=== PATIENT | female | born 1995 | race Caucasian/White ===

== ENCOUNTER 2018-07-13 13:48 | Emergency (ER) | payer SELFPAY ==
--- NOTE | 2018-07-13 14:06 | ER Report ---
History and Physical Time Seen By MD: 14:03 Hx. of Stated Complaint: RUQ pain, onset yesterday. Denies N/V/D or urinary symptoms. HPI/ROS CHIEF COMPLAINT: Right upper quadrant pain HISTORY OF PRESENT ILLNESS: This is a 22-year-old female presents to the emergency department for right upper quadrant pain. Patient states that she began to have some discomfort in the right upper quadrant last night, progressively getting worse through the course of the evening and today segmentally worse, pain 6 out of 10. Denies nausea, vomiting, diarrhea or dysuria. Has had a cough for approximately one month, patient has recently moved to [place] from [place]. Denies chest pain or shortness of breath. Denies fevers or chills. REVIEW OF SYSTEMS: Constitutional: No fever, no chills. Eyes: No discharge. ENT: No sore throat. Cardiovascular: No chest pain, no palpitations. Respiratory: No cough, no shortness of breath. Gastrointestinal: As above. Genitourinary: No hematuria. Musculoskeletal: No back pain. Skin: No rashes. Neurological: No headache. Allergies: Coded Allergies: amoxicillin (Verified Allergy, Unknown, 07/13/18) Home Meds No Active Prescriptions or Reported Meds Past Medical/Surgical History The patient has a past medical and surgical history of meth use. Reviewed Nurses Notes: Yes Hx Substance Use Disorder: Yes (meth, last night) Hx Alcohol Use: Yes (last night) Constitutional Vital Sign - Last 24 Hours 07/13/18 07/13/18 07/13/18 07/13/18 13:51 13:53 13:53 13:58 Temp 97.7 Pulse ??? 104 105 Resp 18 B/P (MAP) 143/95 (111) 143/95 Pulse Ox 96 99 97 O2 Delivery Room Air 07/13/18 07/13/18 07/13/18 07/13/18 14:00 14:03 14:08 14:13 Pulse 109 103 102 Resp 25 24 19 B/P (MAP) 134/88 (103) Pulse Ox 97 97 97 07/13/18 07/13/18 07/13/18 07/13/18 14:18 14:23 14:28 14:30 Pulse 104 101 99 Resp 20 23 24 B/P (MAP) 119/91 (100) Pulse Ox 97 96 100 07/13/18 07/13/18 07/13/18 07/13/18 14:33 14:38 14:43 14:48 Pulse 99 99 98 105 Resp 23 15 20 20 Pulse Ox 94 95 95 95 07/13/18 07/13/18 07/13/18 07/13/18 15:00 15:03 15:08 15:13 Pulse 90 88 89 Resp 25 8 29 B/P (MAP) 118/82 (94) Pulse Ox 96 96 07/13/18 07/13/18 07/13/18 07/13/18 15:18 15:23 15:28 15:30 Pulse 86 89 97 Resp 16 21 10 B/P (MAP) 122/90 (101) Pulse Ox 96 96 96 07/13/18 07/13/18 07/13/18 07/13/18 15:33 15:38 15:43 15:48 Pulse 96 88 92 99 Resp 11 11 20 12 Pulse Ox 98 95 95 95 07/13/18 07/13/18 07/13/18 07/13/18 15:53 15:58 16:00 16:03 Pulse 91 91 94 Resp 19 15 28 B/P (MAP) 115/83 (94) Pulse Ox 94 94 93 07/13/18 07/13/18 07/13/18 07/13/18 16:08 16:13 16:18 16:23 Pulse ? 97 Resp 13 Pulse Ox 93 07/13/18 07/13/18 07/13/18 07/13/18 16:28 16:30 16:33 16:38 Pulse 97 106 93 Resp 12 24 14 B/P (MAP) 121/80 (94) Pulse Ox 95 94 96 07/13/18 07/13/18 07/13/18 16:43 16:48 16:53 Pulse 89 98 Resp 9 15 21 B/P (MAP) 119/83 (95) Pulse Ox 94 95 93 Physical Exam General Appearance: The patient is alert, has no immediate need for airway protection and no signs of toxicity. Eyes: Pupils equal and round no pallor or injection. ENT, Mouth: Mucous membranes are moist. Respiratory: There are no retractions, slightly diminished and coarse in the right lower lobe, otherwise clear throughout. Cardiovascular: Regular rate and rhythm. Gastrointestinal: Abdomen is soft, positive Soares sign, no masses, bowel sounds normal. Neurological: Alert and oriented 4. Moving all extremities. Following all commands. No focal neuro deficits. Skin: Warm and dry, no rashes. Musculoskeletal: Neck is supple non tender. Extremities are nontender, nonswollen and have full range of motion. DIFFERENTIAL DIAGNOSIS: After history and physical exam differential diagnosis was considered for abdominal pain in a female including but not limited to ovarian cyst, pelvic inflammatory disease, cholecystitis, pneumonia, ovarian torsion, urinary tract infection, and appendicitis. Medical Decision Making Data Points Result Diagram: 07/13/18 1404 07/13/18 1404 Laboratory Hematology Test 07/13/18 13:57 07/13/18 14:04 Urine Color Yellow Urine Clarity Clear Urine pH 7.0 pH (4.8-9.5) Urine Specific [place] 1.008 Urine Protein Negative mg/dL (NEGATIVE) Urine Glucose (UA) Negative mg/dL (NEGATIVE) Urine Ketones Negative mg/dL (NEGATIVE) Urine Blood Negative (NEGATIVE) Urine Nitrite Negative (NEGATIVE) Urine Bilirubin Negative (NEGATIVE) Urine Urobilinogen Negative mg/dL (0.2-1.9) Urine Leukocyte Esterase Negative (NEGATIVE) Urine RBC None /HPF (0-2/HPF) Urine WBC 1 /HPF (0-5/HPF) Urine Squamous Epithelial Cells Many /LPF (</=FEW) Urine Renal Epithelial Cells Few /LPF (NONE-FEW) Urine Bacteria Negative /HPF (NONE-FEW) Urine Mucus Few /HPF (NONE-FEW) Red Blood Count 5.37 M/uL (4.17-5.56) Mean Corpuscular Volume 86.9 fL (80.0-96.0) Mean Corpuscular Hemoglobin 30.1 pg (26.0-33.0) Mean Corpuscular Hemoglobin Concent 34.6 g/dL (32.0-36.0) Red Cell Distribution Width 14.0 % (11.5-14.5) Mean Platelet Volume 9.3 fL (7.2-11.1) Neutrophils (%) (Auto) 68.0 % (39.4-72.5) Lymphocytes (%) (Auto) 24.0 % (17.6-49.6) Monocytes (%) (Auto) 6.6 % (4.1-12.4) Eosinophils (%) (Auto) 1.1 % (0.4-6.7) Basophils (%) (Auto) 0.3 % (0.3-1.4) Nucleated RBC Relative Count (auto) 0.1 /100WBC Neutrophils # (Auto) 5.6 K/uL (2.0-7.4) Lymphocytes # (Auto) 2.0 K/uL (1.3-3.6) Monocytes # (Auto) 0.5 K/uL (0.3-1.0) Eosinophils # (Auto) 0.1 K/uL (0.0-0.5) Basophils # (Auto) 0.0 K/uL (0.0-0.1) Nucleated RBC Absolute Count (auto) 0.01 K/uL Sodium Level 140 mmol/L (137-145) Potassium Level 3.3 mmol/L (3.5-5.0) Chloride Level 100 mmol/L (98-107) Carbon Dioxide Level 28 mmol/L (22-31) Blood Urea Nitrogen 5 mg/dl (7-18) Creatinine 0.60 mg/dl (0.52-1.04) Glomerular Filtration Rate Calc > 60.0 Random Glucose 94 mg/dl (75-110) Calcium Level 9.8 mg/dl (8.4-10.2) Total Bilirubin 0.4 mg/dl (0.2-1.3) Aspartate Amino Transf (AST/SGOT) 24 U/L (0-35) Alanine Aminotransferase (ALT/SGPT) 22 U/L (0-56) Alkaline Phosphatase 98 U/L (0-126) Total Protein 8.8 g/dl (6.3-8.2) Albumin 4.7 g/dl (3.5-5.0) Lipase 57 U/L (23-300) Human Chorionic Gonadotropin, Qual Negative (NEGATIVE) Chemistry Test 07/13/18 13:57 07/13/18 14:04 Urine Color Yellow Urine Clarity Clear Urine pH 7.0 pH (4.8-9.5) Urine Specific [place] 1.008 Urine Protein Negative mg/dL (NEGATIVE) Urine Glucose (UA) Negative mg/dL (NEGATIVE) Urine Ketones Negative mg/dL (NEGATIVE) Urine Blood Negative (NEGATIVE) Urine Nitrite Negative (NEGATIVE) Urine Bilirubin Negative (NEGATIVE) Urine Urobilinogen Negative mg/dL (0.2-1.9) Urine Leukocyte Esterase Negative (NEGATIVE) Urine RBC None /HPF (0-2/HPF) Urine WBC 1 /HPF (0-5/HPF) Urine Squamous Epithelial Cells Many /LPF (</=FEW) Urine Renal Epithelial Cells Few /LPF (NONE-FEW) Urine Bacteria Negative /HPF (NONE-FEW) Urine Mucus Few /HPF (NONE-FEW) White Blood Count 8.3 k/uL (4.5-11.0) Red Blood Count 5.37 M/uL (4.17-5.56) Hemoglobin 16.2 g/dL (12.0-16.0) Hematocrit 46.7 % (34.0-47.0) Mean Corpuscular Volume 86.9 fL (80.0-96.0) Mean Corpuscular Hemoglobin 30.1 pg (26.0-33.0) Mean Corpuscular Hemoglobin Concent 34.6 g/dL (32.0-36.0) Red Cell Distribution Width 14.0 % (11.5-14.5) Platelet Count 300 K/uL (150-450) Mean Platelet Volume 9.3 fL (7.2-11.1) Neutrophils (%) (Auto) 68.0 % (39.4-72.5) Lymphocytes (%) (Auto) 24.0 % (17.6-49.6) Monocytes (%) (Auto) 6.6 % (4.1-12.4) Eosinophils (%) (Auto) 1.1 % (0.4-6.7) Basophils (%) (Auto) 0.3 % (0.3-1.4) Nucleated RBC Relative Count (auto) 0.1 /100WBC Neutrophils # (Auto) 5.6 K/uL (2.0-7.4) Lymphocytes # (Auto) 2.0 K/uL (1.3-3.6) Monocytes # (Auto) 0.5 K/uL (0.3-1.0) Eosinophils # (Auto) 0.1 K/uL (0.0-0.5) Basophils # (Auto) 0.0 K/uL (0.0-0.1) Nucleated RBC Absolute Count (auto) 0.01 K/uL Glomerular Filtration Rate Calc > 60.0 Calcium Level 9.8 mg/dl (8.4-10.2) Total Bilirubin 0.4 mg/dl (0.2-1.3) Aspartate Amino Transf (AST/SGOT) 24 U/L (0-35) Alanine Aminotransferase (ALT/SGPT) 22 U/L (0-56) Alkaline Phosphatase 98 U/L (0-126) Total Protein 8.8 g/dl (6.3-8.2) Albumin 4.7 g/dl (3.5-5.0) Lipase 57 U/L (23-300) Human Chorionic Gonadotropin, Qual Negative (NEGATIVE) Urinalysis Test 07/13/18 13:57 Urine Color Yellow Urine Clarity Clear Urine pH 7.0 pH (4.8-9.5) Urine Specific [place] 1.008 Urine Protein Negative mg/dL (NEGATIVE) Urine Glucose (UA) Negative mg/dL (NEGATIVE) Urine Ketones Negative mg/dL (NEGATIVE) Urine Blood Negative (NEGATIVE) Urine Nitrite Negative (NEGATIVE) Urine Bilirubin Negative (NEGATIVE) Urine Urobilinogen Negative mg/dL (0.2-1.9) Urine Leukocyte Esterase Negative (NEGATIVE) Urine RBC None /HPF (0-2/HPF) Urine WBC 1 /HPF (0-5/HPF) Urine Squamous Epithelial Cells Many /LPF (</=FEW) Urine Renal Epithelial Cells Few /LPF (NONE-FEW) Urine Bacteria Negative /HPF (NONE-FEW) Urine Mucus Few /HPF (NONE-FEW) EKG/Imaging Imaging Location: [facility] Patient: Mya Vidal : 1995 Visit/Account:[id number] Date of Sevice: 07/13/2018 ABDOMEN/PELVIS WITH CONTRAST HISTORY: Right-sided abdominal pain TECHNIQUE: Axial images were obtained through the abdomen and pelvis with intravenous contrast . One of the following dose optimization techniques was utilized in the performance of this exam: automated exposure control; adjustment of the mA and/or kv according to patient size; or use of iterative reconstruction technique. Specific details can be referenced in the facility's radiology CT exam operational policy. CONTRAST: 75 cc of Isovue-370 COMPARISON: Ultrasound earlier the same day FINDINGS: Visualized lung bases: Platelike atelectasis. Hepatobiliary: Negative. Spleen: Negative. Adrenals: Negative. Pancreas: Negative. Kidneys/ureters/bladder: Negative. Bowel/peritoneum/mesentery: Normal retrocecal appendix. No bowel obstruction or free air. No inflammatory change surrounding the colon.. Vessels: Negative. Lymph nodes: Negative. Pelvic genitourinary: Probable 1.9 x 1.3 cm functional cyst within the right ovary with trace amount of pelvic free fluid. Bones/body wall: Negative. Other findings: None significant IMPRESSION: 1. Probable 1.9 x 1.3 cm functional cyst within the right ovary with trace amount of pelvic free fluid. 2. Normal appendix. No other acute inflammatory process identified. Report Dictated By: Kobe Gonzales MD at 07/13/2018 4:26 PM Report E-Signed By: Kobe Gonzales MD at 07/13/2018 4:31 PM WSN:[id number] CHEST PA AND LAT HISTORY: Right upper quadrant pain. Cough. COMPARISON: None FINDINGS: Cardiomediastinal contours: Normal Lungs and pleura: Normal Bones/soft tissues: Normal Other findings: None significant IMPRESSION: 1. Normal chest Report Dictated By: Kobe Gonzales MD at 07/13/2018 3:01 PM Report E-Signed By: Kobe Gonzales MD at 07/13/2018 3:04 PM WSN:[id number] CCESSION #: [id number] GALLBLADDER HISTORY: RUQ pain COMPARISON: None. FINDINGS: Gallbladder: Negative.. Bile ducts: There is no biliary ductal dilation with the CBD measuring 3 mm. Liver: Negative. Pancreas: Negative. Right kidney: Negative. Upper abdominal aorta and IVC: Patent. Ascites: None visualized. Other findings: None significant IMPRESSION: 1. Normal Report Dictated By: Kobe Gonzales MD at 07/13/2018 3:43 PM Report E-Signed By: Kobe Gonzales MD at 07/13/2018 3:46 PM WSN:[id number] ED Course/Re-evaluation Clinical Indication for ER IV: Hydration, IV Access ED Course The patient was fitted to a room. A history and physical obtained. Differential diagnoses were considered. An IV was started. A CBC, CMP were pain. Lab studies unremarkable. UA unremarkable. Patient was given a 1 L normal saline bolus. Ultrasound of the right upper quadrant was negative for cholecystitis. Negative two-view chest x-ray. CT of the abdomen and pelvis was negative for any acute findings other than a right-sided ovarian cyst. I reviewed all the laboratory studies and the imaging results with the patient. Patient declined pain medication in the emergency department. The patient at this is likely the cause of her discomfort on the right side. Patient was instructed to follow-up with an [facility] CLERK in the [facility] with primary care provider here in [facility]. Patient had no other questions or concerns at this time and discharged home. Decision to Disposition Date: Jul 13, 2018 Decision to Disposition Time: 16:47 Depart Departure Latest Vital Signs Vital Signs Date Time Temp Pulse Resp B/P (MAP) Pulse Ox O2 Delivery O2 Flow Rate FiO2 07/13/18 16:53 21 119/83 (95) 93 07/13/18 16:48 98 07/13/18 13:53 97.7 Room Air Impression: Primary Impression: Ovarian cyst Condition: Improved Disposition: HOME OR SELF-CARE New Scripts No Active Prescriptions or Reported Meds Patient Instructions: Ovarian Cyst (ED) Additional Instructions: You have a an ovarian cyst on the right that his likely causing your discomfort. Drink plenty of fluids. Get plenty of rest. Take Ibuprofen or Tylenol as needed for pain. Return to the ED for any other concerns or worsening symptoms. Problem Qualifiers Primary Impression: Ovarian cyst Laterality: right Qualified Codes: N83.201 - Unspecified ovarian cyst, right side ENRICO BETANCOURT BRASS SORTER-BC Jul 13, 2018 14:06
[2018-07-13] MEDS ORDERED: NS(*) 0.9% 1000 ML BAG 1,000 ML IV ONE (14:32)
[2018-07-13 14:57] LABS: PLATELET COUNT, AUTOMATED 300 K/uL (150-450)
--- NOTE | 2018-07-13 15:08 | RADIOLOGY IMAGING REPORT ---
FACILITY: [facility] PATIENT NAME: Mya Vidal : 1995 MR: [id number] V: [id number] EXAM DATE: ORDERING PHYSICIAN: ENRICO BETANCOURT TECHNOLOGIST: Location: [facility] Patient: Mya Vidal : 1995 Visit/Account:[id number] Date of Sevice: 07/13/2018 CHEST PA AND LAT HISTORY: Right upper quadrant pain. Cough. COMPARISON: None FINDINGS: Cardiomediastinal contours: Normal Lungs and pleura: Normal Bones/soft tissues: Normal Other findings: None significant IMPRESSION: 1. Normal chest Report Dictated By: Kobe Gonzales MD at 07/13/2018 3:01 PM Report E-Signed By: Kobe Gonzales MD at 07/13/2018 3:04 PM WSN:[id number]
--- NOTE | 2018-07-13 15:50 | RADIOLOGY IMAGING REPORT ---
FACILITY: [facility] PATIENT NAME: Mya Vidal : 1995 MR: [id number] V: [id number] EXAM DATE: ORDERING PHYSICIAN: ENRICO BETANCOURT TECHNOLOGIST: Location: [facility] Patient: Mya Vidal : 1995 Visit/Account:[id number] Date of Sevice: 07/13/2018 GALLBLADDER HISTORY: RUQ pain COMPARISON: None. FINDINGS: Gallbladder: Negative.. Bile ducts: There is no biliary ductal dilation with the CBD measuring 3 mm. Liver: Negative. Pancreas: Negative. Right kidney: Negative. Upper abdominal aorta and IVC: Patent. Ascites: None visualized. Other findings: None significant IMPRESSION: 1. Normal Report Dictated By: Kobe Gonzales MD at 07/13/2018 3:43 PM Report E-Signed By: Kobe Gonzales MD at 07/13/2018 3:46 PM WSN:[id number]
[2018-07-13] MEDS ORDERED: IOPAMIDOL 76% 75 ML INFUS BTL 75 ML ONE (16:10)
--- NOTE | 2018-07-13 16:35 | RADIOLOGY IMAGING REPORT ---
FACILITY: PATIENT NAME: Mya Vidal : 1995 MR: [id number] V: [id number] EXAM DATE: ORDERING PHYSICIAN: ENRICO BETANCOURT TECHNOLOGIST: Location: [facility] Patient: Mya Vidal : 1995 Visit/Account:[id number] Date of Sevice: 07/13/2018 ABDOMEN/PELVIS WITH CONTRAST HISTORY: Right-sided abdominal pain TECHNIQUE: Axial images were obtained through the abdomen and pelvis with intravenous contrast . One of the following dose optimization techniques was utilized in the performance of this exam: automate d exposure control; adjustment of the mA and/or kv according to patient size; or use of iterative rec onstruction technique. Specific details can be referenced in the facility's radiology CT exam operati onal policy. CONTRAST: 75 cc of Isovue-370 COMPARISON: Ultrasound earlier the same day FINDINGS: Visualized lung bases: Platelike atelectasis. Hepatobiliary: Negative. Spleen: Negative. Adrenals: Negative. Pancreas: Negative. Kidneys/ureters/bladder: Negative. Bowel/peritoneum/mesentery: Normal retrocecal appendix. No bowel obstruction or free air. No inflamm atory change surrounding the colon.. Vessels: Negative. Lymph nodes: Negative. Pelvic genitourinary: Probable 1.9 x 1.3 cm functional cyst within the right ovary with trace amount of pelvic free fluid. Bones/body wall: Negative. Other findings: None significant IMPRESSION: 1. Probable 1.9 x 1.3 cm functional cyst within the right ovary with trace amount of pelvic free flui d. 2. Normal appendix. No other acute inflammatory process identified. Report Dictated By: Kobe Gonzales MD at 07/13/2018 4:26 PM Report E-Signed By: Kobe Gonzales MD at 07/13/2018 4:31 PM WSN:[id number]
[2018-07-13 16:53] VITALS: BP 119/83
== END 2018-07-13 17:02 | disposition home or self-care (01) ==
LOC: ER 13:53
DX: N83.201 Unspecified ovarian cyst, right side (principal)
CPT/HCPCS: 71046; 74177; 76705; 81001; 83690; 84703; 85025; 96360; 99284; J7030; Q9967; 82040; 82247; 82310; 82374; 82435; 82565; 82947; 84075; 84132; 84155; 84295; 84450; 84460; 84520

== ENCOUNTER 2018-12-20 09:48 | Observation (INO) | payer SELFPAY ==
[2018-12-20] VITALS (12 sets, daily range): BP systolic 77–104; BP diastolic 49–69
[~2018-12-20] VITALS: Ht 172.7 cm; Wt 59.0 kg
--- NOTE | 2018-12-20 10:29 | ER Report ---
History and Physical Time Seen By MD: 10:29 Hx. of Stated Complaint: DOG BITE HPI/ROS CHIEF COMPLAINT: Dog bite HISTORY OF PRESENT ILLNESS: 23-year-old female patient presents to emergency room with complaint of a dog bite. Patient states that she was walking at 8:00 this morning with a friend. She states that a dog came up and attacked her. Patient states she was bit initially on the right forearm, in the right ankle and the left lower leg. Patient states she did not know the dog. She states that it was a stray and seemingly attacked her for no reason. She states that since then she tried to take a bath, clean everything off and get the bleeding stopped. She denies having any numbness or tingling. She has not taken any medication for this. Patient states that she has no nausea, vomiting. Patient does have pain but states that she can't really feel the wounds. REVIEW OF SYSTEMS: Respiratory: No cough, no dyspnea. Cardiovascular: No chest pain, no palpitations. Gastrointestinal: No vomiting, no abdominal pain. Musculoskeletal: No back pain. Allergies: Coded Allergies: promethazine (Verified Allergy, Intermediate, 12/20/18) amoxicillin (Verified Allergy, Unknown, 07/13/18) Home Meds No Active Prescriptions or Reported Meds Past Medical/Surgical History Patient has a past medical history of marijuana use, alcohol use. Patient has a surgical history of a cyst removed from her back. Reviewed Nurses Notes: Yes Hx Substance Use Disorder: Yes (WEED) Hx Alcohol Use: Yes (last night) Constitutional Vital Sign - Last 24 Hours 12/20/18 12/20/18 09:58 10:45 Temp 98.7 Pulse 102 126 Resp 22 B/P (MAP) 96/61 Pulse Ox 95 Physical Exam General Appearance: The patient is alert, has no immediate need for airway protection and no current signs of toxicity. Respiratory: Chest is non tender, lungs are clear to auscultation. Cardiac: regular rate and rhythm Gastrointestinal: Abdomen is soft and non tender, no masses, bowel sounds normal. Musculoskeletal: Neck: Neck is supple and non tender. Extremities have full range of motion and are non tender. Skin: No rashes or lesions. Patient has puncture wound to right forearm, puncture wounds to right ankle, the left forearm has stellate laceration secondary to dogbite the goes down to the muscle, it measures approximately 7 cm x 7 cm. DIFFERENTIAL DIAGNOSIS: After history and physical exam differential diagnosis was considered for dogbite, infection. Medical Decision Making Data Points Laboratory Hematology Test 12/20/18 11:00 Human Chorionic Gonadotropin, Qual Negative (NEGATIVE) Chemistry Test 12/20/18 11:00 Human Chorionic Gonadotropin, Qual Negative (NEGATIVE) EKG/Imaging Imaging TIBIA FIBULA LEFT, ANKLE 3 VIEW MIN RIGHT Indication: dog bite Comparison: None. Findings: Left tibia/fibular radiograph: The tibia and fibula are intact. Soft tissues demonstrate simultaneous gas along the calf area, consistent with dogbite. There is no radiopaque foreign body. Right ankle: The distal tibia, distal fibula, and the talus are intact. Mortise is preserved. Soft tissues are normal. IMPRESSION: 1. No evidence of fracture left tibia/fibula. 2. Subcutaneous gas and swelling in the left calf, consistent with dogbite. No evidence of radiopaque foreign body. 2. Normal right ankle radiograph. Report Dictated By: Florian Jameson at 12/20/2018 11:48 AM Report E-Signed By: Florian Jameson at 12/20/2018 11:49 AM FOREARM RIGHT Indication: dog bite Comparison: None. Findings: The right radius and ulna are intact. There is a soft tissue defect in the mid forearm, consistent with dog bite. There is no radiopaque foreign body. IMPRESSION: 1. Soft tissue changes consistent with dog bite. 2. No evidence of fracture or foreign body. Report Dictated By: Florian Jameson at 12/20/2018 11:49 AM Report E-Signed By: Florian Jameson at 12/20/2018 11:50 AM ED Course/Re-evaluation ED Course Patient was admitted to an exam room, history and physical were obtained. Differential diagnoses were considered. On examination patient does have bites to the right forearm, the right ankle as well as large bite to the left lower leg. The wound the left lower leg does look to be a significant depth as well as fairly large. An IV was started, patient was given a dose of Rocephin (2 g) as well as a dose of Flagyl (500mg). Patient was given a shot of the rabies vaccine. She is also given a tetanus. I discussed the case with Dr. Rodas, general surgeon. I asked him to come take a look at this as he was in house. He did come down he did see that the wound especially to the left lower leg was of significant depth. He opted to go ahead and take her to surgery to clean that out. We discussed this with the patient who verbalized understanding and agreement. I did discuss with Dr. Rodas about giving her the IgG for rabies while she was under anesthesia as I can be quite painful. He verbalized agreement with that I was willing to do that. I also discussed with patient that she will need to follow-up in special procedures, [facility], on Saturday and then again next Saturday and the Saturday after that to receive additional doses of the rabies vaccine. Patient was taken to the operating room with plan to monitor her overnight with IV antibiotics. Decision to Disposition Date: Dec 20, 2018 Decision to Disposition Time: 11:13 Depart Departure Latest Vital Signs Vital Signs Date Time Temp Pulse Resp B/P (MAP) Pulse Ox O2 Delivery O2 Flow Rate FiO2 12/20/18 10:45 126 12/20/18 09:58 98.7 22 96/61 95 Impression: Primary Impression: Dog bite of left calf Additional Impressions: Dog bite of arm Dog bite of ankle Condition: Condition Unchanged Disposition: ADMIT FROM ER TO OR New Scripts No Active Prescriptions or Reported Meds Problem Qualifiers Primary Impression: Dog bite of left calf Encounter type: initial encounter Qualified Codes: S81.852A - Open bite, left lower leg, initial encounter; W54.0XXA - Bitten by dog, initial encounter Additional Impressions: Dog bite of arm Encounter type: initial encounter Laterality: right Qualified Codes: S41.151A - Open bite of right upper arm, initial encounter; W54.0XXA - Bitten by dog, initial encounter Dog bite of ankle Encounter type: initial encounter Laterality: right Qualified Codes: S91.051A - Open bite, right ankle, initial encounter; W54.0XXA - Bitten by dog, initial encounter MAR GARCIA Dec 20, 2018 10:29
[2018-12-20] MEDS ORDERED: LORazepam 2 MG/ML VIAL IVP ONE (10:40)
[2018-12-20] MEDS ORDERED: RABIES IMMUNE GLOB/PF 300 U/ML VIAL IM ONE ×2 (10:40→11:00)
[2018-12-20] MEDS ORDERED: metroNIDAZOLE* 500MG/100ML BAG 100 ML IVPB ONE (10:40)
[2018-12-20] MEDS ORDERED: cefTRIAXone(*) 2 GM VIAL 2 GM in NS(*) 0.9% 100 ML ADDVANT BAG 100 ML IVPB ONE (10:40)
[2018-12-20] MEDS ORDERED: RABIES VAC(HUMAN) DIPL 2.5/KIT IM ONLY ONE (10:40)
[2018-12-20] MEDS ORDERED: DIPHTH/TETANUS/ACEL. PERTUSSIS IM ONLY ONE (11:10)
[2018-12-20] MEDS ORDERED: LIDOCAINE MPF 1% 5 ML VIAL ONE (11:14)
[2018-12-20] MEDS ORDERED: PROPOFOL EMUL(*) 10MG/ML 20 ML 20 ML ONE (11:14)
[2018-12-20] MEDS ORDERED: DEXAMETHASONE SOD PHOS 10MG/ML ONE (11:14)
[2018-12-20] MEDS ORDERED: ONDANSETRON 4 MG/2 ML VIAL ONE (11:14)
[2018-12-20] MEDS ORDERED: fentaNYL CITR 100 MCG/2 ML AMP ONE ×2 (11:19→12:50)
[2018-12-20] MEDS ORDERED: NORMOSOL R SOLN(*) 1000 ML BAG 1,000 ML IV ONE (11:20)
--- NOTE | 2018-12-20 11:21 | General Surgery Consultation ---
History of Present Illness Reason for Consult dog bite Chief Complaint dog bite History of Present Illness 23 yo f attacked by stray dog at 0800 this morning. she thinks the dog was a pitbull. she was bitten on right forearm, bilat lower leg. these wounds are painful. she cleaned the wounds at home then came to er. she unsure of last tetanus shot. pmh/psh: cyst removed from back as a child social hx: occasional etoh, mj History Home Meds No Active Prescriptions or Reported Meds Allergies: Coded Allergies: promethazine (Verified Allergy, Intermediate, 12/20/18) amoxicillin (Verified Allergy, Unknown, 07/13/18) Review of Systems Constitutional: Other (10 pt ros neg except per hpi) Exam Vital Signs Vital Signs Date Time Temp Pulse Resp B/P (MAP) Pulse Ox O2 Delivery O2 Flow Rate FiO2 12/20/18 10:45 126 12/20/18 09:58 98.7 22 96/61 95 General Appearance: Alert, Awake, Other (anxious but appropriate) Neuro: No Gross deficits, Other (sensation and motor intact left lower ext) Eyes: Other (per, eomi) Cardiovascular: Other (slightly tachycardic) Respiratory: No Respiratory Distress GI: Other (abd soft) Extremities: Other (1 inch open wound right forearm. < 1 cm wound right lower leg. large deep wound left lower leg over richards. did not fully eval due to pain and anxiety. all wounds hemostatic. ) Psych: Alert & Oriented X3, Appropriate Mood & Affect Assessment and Plan Problems: (1) Dog bite of arm Status: Acute Assessment & Plan: npo, iv abx, tetanus, rabies vaccine, will explore and washout wounds in OR. (2) Dog bite of ankle Status: Acute (3) Dog bite of left calf Status: Acute Venous Thromboembolism Antithrombotics Is Pt On Any Antithrombotics?: No Problem Qualifiers (1) Dog bite of arm: Encounter type: initial encounter Laterality: right Qualified Codes: S41.151A - Open bite of right upper arm, initial encounter; W54.0XXA - Bitten by dog, initial encounter (2) Dog bite of ankle: Encounter type: initial encounter Laterality: right Qualified Codes: S91.051A - Open bite, right ankle, initial encounter; W54.0XXA - Bitten by dog, initial encounter (3) Dog bite of left calf: Encounter type: initial encounter Qualified Codes: S81.852A - Open bite, left lower leg, initial encounter; W54.0XXA - Bitten by dog, initial encounter KRUPA JOSEPH Dec 20, 2018 11:21
[2018-12-20] MEDS ORDERED: MORPHINE 4 MG/ML SDV IVP ONE (11:50)
--- NOTE | 2018-12-20 11:54 | RADIOLOGY IMAGING REPORT ---
[place] [facility] [place] NAME: Mya Vidal : 1995 MR: [id number] V: [id number] EXAM DATE: ORDERING PHYSICIAN: MAR GARCIA TECHNOLOGIST: Location: [facility] Patient: Mya Vidal : 1995 Visit/Account:[id number] Date of Sevice: 12/20/2018 TIBIA FIBULA LEFT, ANKLE 3 VIEW MIN RIGHT Indication: dog bite Comparison: None. Findings: Left tibia/fibular radiograph: The tibia and fibula are intact. Soft tissues demonstrate simultaneous gas along the calf area, consistent with dogbite. There is no radiopaque foreign body. Right ankle: The distal tibia, distal fibula, and the talus are intact. Mortise is preserved. Soft ti ssues are normal. IMPRESSION: 1. No evidence of fracture left tibia/fibula. 2. Subcutaneous gas and swelling in the left calf, consistent with dogbite. No evidence of radiopaque foreign body. 2. Normal right ankle radiograph. Report Dictated By: Florian Jameson at 12/20/2018 11:48 AM Report E-Signed By: Florian Jameson at 12/20/2018 11:49 AM WSN:[id number]
--- NOTE | 2018-12-20 11:54 | RADIOLOGY IMAGING REPORT ---
FACILITY: [facility] PATIENT NAME: Mya Vidal : 1995 MR: [id number] V: [id number] EXAM DATE: ORDERING PHYSICIAN: MAR GARCIA TECHNOLOGIST: Location: [facility] Patient: Mya Vidal : 1995 Visit/Account:[id number] Date of Sevice: 12/20/2018 FOREARM RIGHT Indication: dog bite Comparison: None. Findings: The right radius and ulna are intact. There is a soft tissue defect in the mid forearm, con sistent with dog bite. There is no radiopaque foreign body. IMPRESSION: 1. Soft tissue changes consistent with dog bite. 2. No evidence of fracture or foreign body. Report Dictated By: Florian Jameson at 12/20/2018 11:49 AM Report E-Signed By: Florian Jameson at 12/20/2018 11:50 AM WSN:[id number]
--- NOTE | 2018-12-20 11:55 | RADIOLOGY IMAGING REPORT ---
FACILITY: [facility] - [place] PATIENT NAME: Mya Vidal : 1995 MR: [id number] V: [id number] EXAM DATE: ORDERING PHYSICIAN: MAR GARCIA TECHNOLOGIST: [place] [facility] [place] Patient: Mya Vidal : 1995 Visit/Account:[id number] Date of Sevice: 12/20/2018 TIBIA FIBULA LEFT, ANKLE 3 VIEW MIN RIGHT Indication: dog bite Comparison: None. Findings: Left tibia/fibular radiograph: The tibia and fibula are intact. Soft tissues demonstrate simultaneous gas along the calf area, consistent with dogbite. There is no radiopaque foreign body. Right ankle: The distal tibia, distal fibula, and the talus are intact. Mortise is preserved. Soft ti ssues are normal. IMPRESSION: 1. No evidence of fracture left tibia/fibula. 2. Subcutaneous gas and swelling in the left calf, consistent with dogbite. No evidence of radiopaque foreign body. 2. Normal right ankle radiograph. Report Dictated By: Florian Jameson at 12/20/2018 11:48 AM Report E-Signed By: Florian Jameson at 12/20/2018 11:49 AM WSN:[id number]
[2018-12-20] MEDS ORDERED: NEOMYCIN/POLYMYX/BACITR 30 GM TP ONE (12:06)
[2018-12-20] MEDS ORDERED: BUPIVACAINE/EPI 0.5% 50ML VIAL INFIL ONE (12:07)
[2018-12-20] MEDS ORDERED: FAMOTIDINE 20 MG TAB PO ONE (12:10)
[2018-12-20] MEDS ORDERED: FAMOTIDINE(*) 20MG/50ML PREMIX 50 ML IVPB ONE (12:11)
[2018-12-20] MEDS ORDERED: PROPOFOL EMUL(*) 10MG/ML 20 ML 60 ML ONE (12:22)
[2018-12-20] MEDS ORDERED: MIDAZOLAM 2 MG/2 ML VIAL ONE (12:27)
[2018-12-20] MEDS ORDERED: REMIFENTANIL HCL 1 MG VIAL ONE (12:59)
[2018-12-20] MEDS ORDERED: ONDANSETRON 4 MG/2 ML VIAL IVP PRN (14:30)
--- NOTE | 2018-12-20 14:32 | Post Operative Progress Note ---
Post Operative Progress Note Date: Dec 20, 2018 Time: 14:30 Surgeon: dr. sergey palma Publicity Agent: none Anesthesia: gen dr. camargo Pre-Op Diagnosis: dog bite Post-Op Diagnosis: same Findings: mult bites, greatest depth is into muscle Procedure(s): dog bite exploration, debridement, washout Complications: none Estimated Blood Loss: minimal KRUPA PALMA Dec 20, 2018 14:31
[2018-12-20] MEDS ORDERED: VITA400T7 PO (16:09)
[2018-12-20] MEDS ORDERED: PREN-127 PO (16:09)
--- NOTE | 2018-12-20 16:33 | OPERATIVE REPORT 1 ---
EVENT DATE: December 20, 2018 SURGEON: Edwin Rodas MD ANESTHESIOLOGIST: Ernesto Rivera MD ANESTHESIA: General. CABLE ENGINEER: None. PREOPERATIVE DIAGNOSIS Multiple dog bites. POSTOPERATIVE DIAGNOSIS Multiple dog bites. PROCEDURE PERFORMED Exploration, washout, and debridement of multiple dog bites. FLUIDS IV crystalloid. ESTIMATED BLOOD LOSS Minimal. SPECIMENS None. COMPLICATIONS None. INDICATIONS This is a 23-year-old female who was attacked by a dog this morning. She had multiple dog bites including her right upper extremity and bilateral lower extremities with the largest bites being on her left lower leg. She was given a tetanus shot and rabies vaccine in the Emergency Department. She was started on IV antibiotics. Imaging showed no fracture and no retained foreign bodies. Risks and benefits of the procedure were explained, and consent was signed. DESCRIPTION OF PROCEDURE Patient was taken to the operating room, placed in the supine position. General anesthesia was administered. Patient was prepped and draped in normal sterile fashion. I began with the left lower extremity. This wound was inspected. The wound was approximately 9 cm in largest dimension. The wound did penetrate through the fascia covering the gastrocnemius muscle and did damage some of the gastrocnemius muscle itself. No nerve or bony injury was identified. The wound was thoroughly irrigated with normal saline. Patient had two wounds a small distance from the large wound that did communicate with the large wound. These were irrigated as well. The fascia was partially approximated with a [id number] 2-0 Vicryl stitch. Skin flaps of the large wound were partially approximated leaving the majority of the wound open. A Debbie drain was placed between the large wound and one of the smaller wounds and tied to itself. The Debbie exit was partially approximated with a 2-0 nylon stitch. The remainder of the wounds on the left lower extremity were inspected. They were small. They were irrigated. On the right lower extremity, the wounds were small. They were inspected and irrigated as well. On the right upper extremity, there was one wound that was a couple of centimeters in length. This wound was thoroughly irrigated. In one area, approximately 0.5 cm of fascia had been penetrated, and the underlying muscle was exposed. This was not closed. This wound was packed with 1-inch Iodoform strip gauze, as was the larger wound on the left lower extremity. The right upper extremity wound was partially closed with a 2-0 nylon stitch. The rabies immunoglobulin was given at this time. Wounds were appropriately dressed. Patient tolerated the procedure. There were no complications. [facility]ITALM[facility]
[2018-12-20] MEDS: NS(*) 0.9% 1000 ML BAG 1,000 ML IV SCH (16:35)
[2018-12-20] MEDS: metroNIDAZOLE* 500MG/100ML BAG 100 ML IVPB SCH (17:54)
[2018-12-20] MEDS ORDERED: NICOTINE INH SYSTEM 10 MG/INH INH PRN (18:00)
[2018-12-20] MEDS: APAP/HYDROCODONE 325/7.5 TAB PO PRN (19:34)
[2018-12-21] VITALS (9 sets, daily range): BP systolic 82–103; BP diastolic 44–68; Ht 172.7 cm; Wt 59.0 kg
[2018-12-21] MEDS: NS(*) 0.9% 1000 ML BAG 1,000 ML IV SCH ×4 (00:42→22:30)
[2018-12-21] MEDS: metroNIDAZOLE* 500MG/100ML BAG 100 ML IVPB SCH ×3 (02:37→18:21)
[2018-12-21] MEDS: APAP/HYDROCODONE 325/7.5 TAB PO PRN ×5 (05:30→21:27)
[2018-12-21] MEDS: cefTRIAXone 2 GM VIAL IVP SCH (08:55)
[2018-12-21] MEDS ORDERED: ENOXAPARIN 40 MG/0.4ML SYR SC SCH (09:00)
[2018-12-21] MEDS ORDERED: HYDROmorphone HCL 2 MG/ML SDV IVP ONE (10:50)
[2018-12-21] MEDS ORDERED: HYDROmorphone HCL 2 MG/ML SDV IVP PRN (10:55)
[2018-12-21 11:01] LABS: PLATELET COUNT, AUTOMATED 188 K/uL (150-450)
--- NOTE | 2018-12-21 11:01 | General Surgery Progress Note ---
Subjective Progress Notes Subjective no acute events. melonie po. slept ok. pain at wounds. Physical Exam Vital Signs Date Time Temp Pulse Resp B/P (MAP) Pulse Ox O2 Delivery O2 Flow Rate FiO2 12/21/18 07:30 98.6 89 16 94/44 (61) 89 Room Air 12/20/18 16:20 1.0 Intake and Output 12/21/18 06:59 Intake Total 3475 ml Balance 3475 ml Intake Oral 220 ml IV Total 3255 ml # Voids 2 Integumentary: Other (wounds healing approriatedly. left calf not tense. no purulence. skin viable. ) Assessment and Plan Problems: (1) Dog bite of arm Status: Acute Assessment & Plan: 12/20/18: npo, iv abx, tetanus, rabies vaccine, will explore and washout wounds in OR. 12/21/18: i repacked/redressed wounds. pain control. cont iv abx. elevate legs when in bed. lovenox scheduled. likely home tomorrow. (2) Dog bite of ankle Status: Acute (3) Dog bite of left calf Status: Acute Exam Sepsis Risk: No Definite Risk Problem Qualifiers (1) Dog bite of arm: Encounter type: initial encounter Laterality: right Qualified Codes: S41.151A - Open bite of right upper arm, initial encounter; W54.0XXA - Bitten by dog, initial encounter (2) Dog bite of ankle: Encounter type: initial encounter Laterality: right Qualified Codes: S91.051A - Open bite, right ankle, initial encounter; W54.0XXA - Bitten by dog, initial encounter (3) Dog bite of left calf: Encounter type: initial encounter Qualified Codes: S81.852A - Open bite, left lower leg, initial encounter; W54.0XXA - Bitten by dog, initial encounter KRUPA JOSEPH Dec 21, 2018 11:01
[2018-12-22] MEDS: metroNIDAZOLE* 500MG/100ML BAG 100 ML IVPB SCH ×2 (02:12→10:51)
[2018-12-22] MEDS: APAP/HYDROCODONE 325/7.5 TAB PO PRN ×3 (05:32→14:12)
[2018-12-22] MEDS: NS(*) 0.9% 1000 ML BAG 1,000 ML IV SCH (05:33)
[2018-12-22 05:34] VITALS: BP 101/58
[2018-12-22 06:35] LABS: PLATELET COUNT, AUTOMATED 185 K/uL (150-450)
[2018-12-22 07:51] VITALS: BP 100/58
--- NOTE | 2018-12-22 08:01 | General Surgery Progress Note ---
Subjective Progress Notes Subjective Slept okay, still with expected discomfort at bite wounds. Physical Exam Vital Signs Date Time Temp Pulse Resp B/P (MAP) Pulse Ox O2 Delivery O2 Flow Rate FiO2 12/22/18 05:34 98.6 79 18 101/58 (72) 90 Room Air 12/20/18 16:20 1.0 Intake and Output 12/22/18 07:00 Intake Total 3650 ml Balance 3650 ml Intake Oral 600 ml IV Total 3050 ml # Voids 2 General Appearance: Alert, Awake, No Acute Distress, Afebrile Neuro: No Gross deficits Cardiovascular: Regular Rate and Rhythm Respiratory: No Respiratory Distress, Clear to Auscultation Extremities: Other (All dressings taken down, wounds clean without evidence of infection. New dressings applied.) Result Diagram: 12/22/18 0609 12/21/18 1055 Assessment and Plan Problems: (1) Dog bite of arm Status: Acute Assessment & Plan: 12/20/18: npo, iv abx, tetanus, rabies vaccine, will explore and washout wounds in OR. 12/21/18: i repacked/redressed wounds. pain control. cont iv abx. elevate legs when in bed. lovenox scheduled. likely home tomorrow. 12/22/18: Wounds redressed, clean without evidence of infection, completing 48 hours of IV prophylactic antibiotics, DC home with follow up for continued Rabies vaccinations and FU with Dr. Rodas. (2) Dog bite of ankle Status: Acute (3) Dog bite of left calf Status: Acute Time Spent: < 30 min Exam Sepsis Risk: No Definite Risk Problem Qualifiers (1) Dog bite of arm: Encounter type: initial encounter Laterality: right Qualified Codes: S41.151A - Open bite of right upper arm, initial encounter; W54.0XXA - Bitten by dog, initial encounter (2) Dog bite of ankle: Encounter type: initial encounter Laterality: right Qualified Codes: S91.051A - Open bite, right ankle, initial encounter; W54.0XXA - Bitten by dog, initial encounter (3) Dog bite of left calf: Encounter type: initial encounter Qualified Codes: S81.852A - Open bite, left lower leg, initial encounter; W54.0XXA - Bitten by dog, initial encounter LINDSEY BRUNSON MD Dec 22, 2018 08:01
--- NOTE | 2018-12-22 08:09 | Hospitalist Depart ---
Discharge Summary Reason for Hosp/Final Diag: (1) Dog bite of arm Status: Acute Hospital Course & Plan: 12/20/18: npo, iv abx, tetanus, rabies vaccine, will explore and washout wounds in OR. 12/21/18: i repacked/redressed wounds. pain control. cont iv abx. elevate legs when in bed. lovenox scheduled. likely home tomorrow. 12/22/18: Wounds redressed, clean without evidence of infection, completing 48 hours of IV prophylactic antibiotics, DC home with follow up for continued Rabies vaccinations and FU with Dr. Rodas. (2) Dog bite of ankle Status: Acute (3) Dog bite of left calf Status: Acute Departure Weight (Pounds): 130 Result Diagram: 12/22/18 0609 12/21/18 1055 Condition: Improved Discharge: Home, Self Care Discharge Code Status: Full Code Treatments: Wound Care, Other (Rabies vaccinations) Time Spent: > 30 min Discharge Instructions Home Meds Reported Medications Vitamin E Mixed (VITAMIN E) 400 Unit Tablet, 400 UNIT PO QDAY 12/20/18 Vits W-Ca,Fe,Fa(<1MG) ( VITAMINS) 1 Each Tablet, 1 EACH PO DAILY, TAB 12/20/18 Diet: Regular Activity: As Tolerated Special Instructions: Follow up with Dr. Rodas on Saturday or , call his office for an appointment. Follow up for completion of Rabies vaccinations. Venous Thromboembolism Antithrombotics Is Pt On Any Antithrombotics?: No Problem Qualifiers (1) Dog bite of arm: Encounter type: initial encounter Laterality: right Qualified Codes: S41.151A - Open bite of right upper arm, initial encounter; W54.0XXA - Bitten by dog, initial encounter (2) Dog bite of ankle: Encounter type: initial encounter Laterality: right Qualified Codes: S91.051A - Open bite, right ankle, initial encounter; W54.0XXA - Bitten by dog, initial encounter (3) Dog bite of left calf: Encounter type: initial encounter Qualified Codes: S81.852A - Open bite, left lower leg, initial encounter; W54.0XXA - Bitten by dog, initial encounter LINDSEY BRUNSON MD Dec 22, 2018 08:09
[2018-12-22] MEDS ORDERED: Acetaminophen/Hydrocodone PO (08:14)
[2018-12-22] MEDS ORDERED: CEPH500T7 PO (09:21)
--- NOTE | 2018-12-22 09:24 | Miscellaneous Provider Note ---
Miscellaneous Provider Note Note Discussed with Dr. Rodas. He would like her to be sent out on PO antibiotic. Keflex 500 mg PO q 6 h ordered. Patient informed. LINDSEY BRUNSON MD Dec 22, 2018 09:24
[2018-12-22] MEDS: cefTRIAXone 2 GM VIAL IVP SCH (09:33)
[2018-12-22 14:12] VITALS: BP 111/68
[2018-12-23] MEDS ORDERED: RABIES VAC(HUMAN) DIPL 2.5/KIT IM ONLY ONE (08:25)
== END 2018-12-22 08:28 | disposition home or self-care (01) ==
LOC: ER 10:49 → OR 12:07 → MED 15:04
PROVIDERS: ADMIT Surgery; ATTEND Surgery
DX: S81.852A Open bite, left lower leg, initial encounter (principal); S41.151A Open bite of right upper arm, initial encounter; S91.051A Open bite, right ankle, initial encounter; W54.0XXA Bitten by dog, initial encounter
CPT/HCPCS: 11043; 36415; 73090; 73590; 73610; 84703; 85025; 90471; 90675; 90715; 96365; 96372; 96375; 99284; G0378; J0696; J1170; J1650; J2001; J2060; J2250; J2270; J2405; J2704; J3010; J3490; J7030; J7050; 82310; 82374; 82435; 82565; 82947; 84132; 84295; 84520; J1100

== ENCOUNTER 2018-12-27 10:30 | Outpatient (RCR) | payer SELFPAY ==
[2018-12-21 09:37] VITALS: BMI 19.8
[2018-12-23 11:23] VITALS: BP 117/76
[~2018-12-27 10:30] MED LIST: Acetaminophen/Hydrocodone PO; CEPH500T7 PO; PREN-127 PO; RABIES VAC(HUMAN) DIPL 2.5/KIT IM ONLY ONE; VITA400T7 PO
[2018-12-27] MEDS ORDERED: RABIES VAC(HUMAN) DIPL 2.5/KIT IM ONLY ONE (11:15)
[2018-12-27 11:24] VITALS: BP 112/67
== END 2019-03-22 ==
LOC: SPU 10:30
PROVIDERS: ATTEND Nurse Practitioner Family
DX: T14.8XXA Other injury of unspecified body region, initial encounter (principal); W54.0XXA Bitten by dog, initial encounter
CPT/HCPCS: 90471; 90675